=== PATIENT | female | born 1970 | race Caucasian/White ===

== ENCOUNTER 2022-02-27 11:41 | Outpatient (CLI) | payer MEDICARE, SELFPAY ==
[2022-02-27 13:33] LABS: Basophils Absolute Auto 0.03 K/uL (0.00-0.30); Basophils Percent Auto 0.5 % (0.0-3.0); Eosinophils Absolute Auto 0.11 K/uL (0.00-0.50); Eosinophils Percent Auto 1.9 % (0.0-7.0); Hematocrit 42.3 % (33.0-51.0); Hemoglobin* 13.9 gm/dL (12.0-16.0); Lymphocytes Absolute Auto 1.74 K/uL (0.90-2.90); Lymphocytes Percent Auto 30.6 % (20-44); Mean Corpuscular HGB Conc 33 gm/dL (32-36); Mean Corpuscular Hemoglobin 30 pg (26-34); Mean Corpuscular Volume 90 fL (80-100); Monocytes Percent Auto 9.7 % (0.0-11.0); Neutrophils Absolute Auto 3.26 K/uL (1.7-7.0); Neutrophils Percent Auto 57.3 % (42.0-72.0); Platelet Count* 214 K/uL (140-440); RDW Coefficient of Variation % 12.4 % (11.5-15.5); Red Blood Count 4.69 m/uL (4.00-5.20); White Blood Count* 5.69 K/uL (4.50-11.00)
[2022-02-27 13:54] LABS: Slide Review Reflex No
[2022-02-27 14:00] LABS: Chloride* 104 mmol/L (96-114); Potassium* 4.5 mmol/L (3.6-5.1); Sodium* 137 mmol/L (135-149)
[2022-02-27 14:03] LABS: Blood Urea Nitrogen* 20 mg/dL (7-30); Carbon Dioxide* 28 mmol/L (20-32); Cholesterol* 270 mg/dL (90-199); Creatinine* 0.9 mg/dL (0.5-1.5); Estimated Glomerular Filt Rate 78 ml/min; Glucose* 101 mg/dL (60-115); Triglycerides* 146 mg/dL (40-149)
[2022-02-27 14:04] LABS: HDL Cholesterol* 48 mg/dL (>=50); LDL Cholesterol Calculated 193 mg/dL (<100)
[2022-02-27 14:17] LABS: Vitamin D 25 Hydroxy* 45 ng/mL (30-80)
== END 2022-02-27 11:42 | disposition home or self-care (01) ==
PROVIDERS: PCP Family Medicine; Visit Provider Family Medicine
DX: Z79.899 Other long term (current) drug therapy (principal); E55.9 Vitamin D deficiency, unspecified; I10 Essential (primary) hypertension; F41.9 Anxiety disorder, unspecified; K21.9 Gastro-esophageal reflux disease without esophagitis; G43.909 Migraine, unspecified, not intractable, without status migrainosus; F32.A Depression, unspecified
CPT/HCPCS: 80048; 80061; 82306; 85025

== ENCOUNTER 2022-03-21 10:55 | Outpatient (CLI) | payer MEDICARE, SELFPAY ==
[2022-03-21 14:47] LABS: SARS PCR* Negative SARS-CoV-2 (Negative)
== END 2022-03-21 10:56 | disposition home or self-care (01) ==
LOC: FBOREF 10:56
PROVIDERS: PCP Family Medicine; Visit Provider Family Medicine
DX: Z20.822 Contact with and (suspected) exposure to COVID-19 (principal); Z01.818 Encounter for other preprocedural examination
CPT/HCPCS: 87635

== ENCOUNTER 2022-03-22 07:23 | Outpatient (CLI) | payer MEDICARE, SELFPAY ==
--- NOTE | 2022-03-22 08:41 | W.ANESCHARGE ---
Anesthesia Charges Start Date/Time Anesthesia Start Date: 03/22/22 Anesthesia Start Time: 08:13 Stop Date/Time Anesthesia Stop Date: 03/22/22 Anesthesia Stop Time: 08:35 Summary Emergency: No
--- NOTE | 2022-03-22 09:15 | W.ANESCHARGE ---
Anesthesia Charges Start Date/Time Anesthesia Start Date: 03/22/22 Anesthesia Start Time: 08:13 Stop Date/Time Anesthesia Stop Date: 03/22/22 Anesthesia Stop Time: 08:35 Summary Emergency: No
== END 2022-03-22 07:24 | disposition home or self-care (01) ==
PROVIDERS: PCP Family Medicine; Visit Provider Surgery
DX: Z12.11 Encounter for screening for malignant neoplasm of colon (principal); Z83.71 Family history of colonic polyps
CPT/HCPCS: 00812; 45378

== ENCOUNTER 2022-08-15 12:30 | Outpatient (CLI) | payer MEDICARE, SELFPAY ==
[2022-08-15 13:48] LABS: Clue Cells <20% Clue Cells Seen (None Seen); Trichomonas No Trichomonas Seen (None Seen); Yeast No Yeast Seen (None Seen)
[2022-08-15 13:49] LABS: Albumin* 4.3 g/dL (3.3-5.0)
[2022-08-15 13:52] LABS: Bilirubin Direct* 0.1 mg/dL (0.0-0.5); Bilirubin Total* 0.6 mg/dL (0.1-1.5)
[2022-08-15 13:53] LABS: Alanine Aminotransferase* 60 U/L (4-35); Alkaline Phosphatase* 95 U/L (40-150); Total Protein* 6.9 g/dL (6.0-8.3)
[2022-08-15 14:08] LABS: Aspartate Amino Transferase* 30 U/L (12-35)
[2022-08-15 14:26] LABS: HIV 1/2/P24 Combo Screen* Negative (Negative)
[2022-08-15 15:15] LABS: Chlamydia DNA Amplified* NOT DETECTED (No Detected); GC DNA Amplified* NOT DETECTED (No Detected)
[2022-08-16 19:14] LABS: Hep A Ab, IgM Negative (Negative); Hep B Core Ab, IgM Negative (Negative); Hep B Surface Antigen Negative (Negative); Hep C Ab by CIA Index 0.04 IV; Hep C Ab by CIA Interp Negative (Negative)
== END 2022-08-15 12:31 | disposition home or self-care (01) ==
PROVIDERS: PCP Family Medicine; Visit Provider Family Medicine
DX: I10 Essential (primary) hypertension (principal); N89.8 Other specified noninflammatory disorders of vagina; R10.9 Unspecified abdominal pain; J32.9 Chronic sinusitis, unspecified; Z11.3 Encounter for screening for infections with a predominantly sexual mode of transmission
CPT/HCPCS: 80074; 80076; 84443; 86703; 87210; 87491; 87591

== ENCOUNTER 2022-09-02 12:25 | Emergency (ER) | payer MEDICARE, SELFPAY ==
[2022-09-02 12:31] VITALS: BP 133/92; PULSE 82; RESP 18; TEMP 35.9; O2SAT 97; BMI 22.8
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
--- NOTE | 2022-09-02 12:57 | CRLHL7_ITS ---
For Patients: As a result of the Cures Act, medical imaging exams and procedure reports are released immediately into your electronic medical record. You may view this report before your referring provider. If you have questions, please contact your health care provider. INDICATION: Left sided chest pain TECHNIQUE: Chest radiograph 1 view COMPARISON: None FINDINGS: Mediastinum: The mediastinum is normal in appearance. The heart silhouette is normal in size and morphology. Lung: Both lungs are unremarkable in appearance. No sign of pleural effusion seen. No pneumothorax is identified. Bone and Soft tissue: Unremarkable for age. IMPRESSION: 1. No acute cardiopulmonary disease is seen. Dictated by: Carson Sparks MD @ 09/02/2022 13:23:59 (Electronically Signed)
[2022-09-02 13:33] VITALS: PULSE 66; O2SAT 100
[2022-09-02 13:39] LABS: Basophils Absolute Auto 0.01 K/uL (0.00-0.30); Basophils Percent Auto 0.2 % (0.0-3.0); Eosinophils Absolute Auto 0.09 K/uL (0.00-0.50); Eosinophils Percent Auto 1.5 % (0.0-7.0); Hemoglobin* 14.8 gm/dL (12.0-16.0); Lymphocytes Absolute Auto 1.38 K/uL (0.90-2.90); Lymphocytes Percent Auto 23.6 % (20-44); Mean Corpuscular HGB Conc 33 gm/dL (32-36); Mean Corpuscular Hemoglobin 30 pg (26-34); Mean Corpuscular Volume 91 fL (80-100); Monocytes Percent Auto 10.9 % (0.0-11.0); Neutrophils Absolute Auto 3.73 K/uL (1.7-7.0); Neutrophils Percent Auto 63.8 % (42.0-72.0); Platelet Count* 187 K/uL (140-440); RDW Coefficient of Variation % 13.1 % (11.5-15.5); Red Blood Count 4.95 m/uL (4.00-5.20); White Blood Count* 5.85 K/uL (4.50-11.00)
[2022-09-02 13:41] LABS: Slide Review Reflex Yes
[2022-09-02] MEDS: 0.9 % SODIUM CHLORIDE 1000 ml 1,000 ML IV (13:44)
[2022-09-02] MEDS: ONDANSETRON 2 MG/ML inj 4 MG IVP (13:44)
[2022-09-02 13:45] VITALS: PULSE 74; O2SAT 96
[2022-09-02 13:59] LABS: Albumin* 4.3 g/dL (3.3-5.0); Chloride* 103 mmol/L (96-114); Sodium* 137 mmol/L (135-149)
[2022-09-02 14:01] LABS: Bilirubin Total* 0.7 mg/dL (0.1-1.5); Creatinine* 0.9 mg/dL (0.5-1.5); Estimated Glomerular Filt Rate 77 ml/min
[2022-09-02 14:02] LABS: Alanine Aminotransferase* 66 U/L (4-35); Alkaline Phosphatase* 75 U/L (40-150); Aspartate Amino Transferase* 45 U/L (12-35); Blood Urea Nitrogen* 16 mg/dL (7-30); Calcium* 9.3 mg/dL (8.4-10.6); Carbon Dioxide* 26 mmol/L (20-32); Glucose* 100 mg/dL (60-115); Lipase* 95 U/L (23-300); Total Protein* 7.4 g/dL (6.0-8.3)
[2022-09-02 14:03] LABS: Magnesium* 1.8 mg/dL (1.5-2.6)
[2022-09-02 14:05] LABS: C Reactive Protein* 2.5 mg/dL (0.5-1.0)
[2022-09-02 14:21] LABS: PCR FLU A Negative PCR FLU A (Negative); PCR FLU B Negative PCR FLU B (Negative); PCR RSV Negative PCR RSV (Negative)
[2022-09-02 14:23] LABS: SARS PCR* Negative SARS-CoV-2 (Negative)
[2022-09-02 14:35] LABS: Slide Review Acceptable Review (Acceptable)
[2022-09-02 14:57] LABS: Appearance Urine Clear (Clear); Bilirubin Urine Negative (Negative); Blood Urine Negative (Negative); Color Urine Yellow (Yellow); Glucose Urine Negative (Negative); Ketones Urine Negative (Negative); Leukocyte Esterase Urine Negative (Negative); Nitrite Urine Negative (Negative); Protein Urine Negative (Negative); Urobilinogen Urine 0.2 (0.2-1.0)
[2022-09-02 15:06] LABS: RBC Urine 0-2 (0-2); WBC Urine 0-2 (0-5)
[2022-09-02 17:40] LABS: C.Difficile Negative (Negative); CDIFFEPI 027 PRESUMPTIVE NEGATIVE (Negative)
[2022-09-06 19:13] LABS: Ova and Parasite, Fecal Negative (Negative)
== END 2022-09-02 16:46 | disposition home or self-care (01) ==
PROVIDERS: Emergency Provider Family Medicine; PCP Family Medicine
DX: R07.9 Chest pain, unspecified (principal); R19.7 Diarrhea, unspecified; M54.14 Radiculopathy, thoracic region
CPT/HCPCS: 36415; 71045; 80053; 81001; 83690; 83735; 84484; 85025; 86140; 87045; 87046; 87177; 87209; 87427; 87493; 87502; 87634; 87635; 93005; 96374; 99284; J2405; J7030

== ENCOUNTER 2022-10-18 11:20 | Outpatient (CLI) | payer MEDICARE, SELFPAY ==
--- NOTE | 2022-10-18 11:30 | CRLHL7_ITS ---
For Patients: As a result of the Cures Act, medical imaging exams and procedure reports are released immediately into your electronic medical record. You may view this report before your referring provider. If you have questions, please contact your health care provider. BILATERAL SCREENING MAMMOGRAM WITH COMPUTER-AIDED DETECTION AND TOMOSYNTHESIS TECHNIQUE: CC and MLO views were obtained. These mammographic images have been obtained using full-field digital technique. These mammographic images were interpreted with the benefit of computer-aided detection. Breast tomosynthesis was used in this interpretation. COMPARISON FILM: 03/31/20, 02/12/19, 05/15/17. FINDINGS: There are scattered areas of fibroglandular density. IMPRESSION: There is no radiographic evidence for malignancy. ASSESSMENT: BI-RADS Category 1: Negative RECOMMENDATION: Routine screening mammogram in 1 year. A lay language report of this examination will be provided to the patient. SABINO RODAS M.D. Diagnostic Radiologist [email or web address] Transcribed: 10/19/2022, 1:[address]/Dictated by: Sabino Rodas MD @ 10/19/2022 8:25:00 AM (Electronically Signed)
== END 2022-10-18 11:21 | disposition home or self-care (01) ==
LOC: MAMMO 11:21
PROVIDERS: PCP Family Medicine; Visit Provider Family Medicine
DX: Z12.31 Encounter for screening mammogram for malignant neoplasm of breast (principal)
CPT/HCPCS: 77063; 77067

== ENCOUNTER 2023-08-20 12:35 | Emergency (ER) | payer MEDICARE, SELFPAY ==
[2023-08-20 13:20] VITALS: BP 145/103; PULSE 66; RESP 18; TEMP 36.4; O2SAT 98; BMI 22.0
--- NOTE | 2023-08-20 13:32 | CRLHL7_ITS ---
For Patients: As a result of the Century Cures Act, medical imaging exams and procedure reports are released immediately into your electronic medical record. You may view this report before your referring provider. If you have questions, please contact your health care provider. INDICATION: Right-sided flank pain. TECHNIQUE: CT abdomen and pelvis acquired with 100 cc Omnipaque 350 IV contrast. COMPARISON: None. FINDINGS: Lower chest: Scattered atelectasis. Liver: Unremarkable. Normal in size and attenuation. No suspicious masses. Gallbladder and bile ducts: Cholecystectomy. Pancreas: Unremarkable. No mass or inflammation. Spleen: Unremarkable. Normal in size. No masses. Adrenal glands: Unremarkable. No nodules. Kidneys: Moderate right-sided hydroureteronephrosis secondary to 6 millimeter obstructing UPJ/proximal ureteral stone. GI tract: Unremarkable. Normal in caliber. No sign of mass or inflammation. Appendectomy. Vasculature: Abdominal aorta is normal in caliber. Mesenteric arteries are patent. Lymph nodes: No lymphadenopathy. Peritoneum/Abdominal Wall: Unremarkable. No sign of mass or infiltration. No free air or significant free fluid. Pelvis: Unremarkable. Bones: Right hip arthroplasty without streak artifact IMPRESSION: Moderate right-sided hydronephrosis secondary to 6 millimeter obstructing UPJ/proximal ureteral stone. Please note that all CT scans at this facility use dose modulation, iterative reconstruction, and/or weight-based dosing when appropriate to reduce radiation dose to as low as reasonably achievable. Dictated by Kota Clayton MD @ 08/20/2023 2:34:43 PM (Electronically Signed)
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
[2023-08-20 13:53] LABS: Appearance Urine Slightly Cloudy (Clear); Bilirubin Urine Negative (Negative); Blood Urine 3+ (Negative); Color Urine Dark yellow (Yellow); Glucose Urine Negative (Negative); Ketones Urine Negative (Negative); Leukocyte Esterase Urine Negative (Negative); Nitrite Urine Negative (Negative); Protein Urine 1+ (Negative); Specific Gravity Urine 1.025 (1.000-1.030); Urobilinogen Urine 0.2 (0.2-1.0)
[2023-08-20] MEDS: KETOROLAC 15 MG/ML inj IVP (14:10)
[2023-08-20] MEDS: LACTATED RINGERS 1000 ML 1,000 ML IV (14:11)
[2023-08-20] MEDS: ONDANSETRON 2 MG/ML inj 4 MG IVP (14:12)
[2023-08-20 14:24] LABS: Bacteria Urine Few; RBC Urine 50-100 (0-2); Squamous Epithelial Cell Urine Few (None-Few)
[2023-08-20 14:30] VITALS: BP 148/74; PULSE 77; O2SAT 98
[2023-08-20 14:59] VITALS: PULSE 77; O2SAT 98
[2023-08-20 15:06] LABS: PCR FLU A Negative PCR FLU A (Negative); PCR FLU B Negative PCR FLU B (Negative); PCR RSV Negative PCR RSV (Negative); SARS PCR* Negative SARS-CoV-2 (Negative)
[2023-08-20 15:33] LABS: Basophils Absolute Auto 0.04 K/uL (0.00-0.30); Basophils Percent Auto 0.4 % (0.0-3.0); Eosinophils Absolute Auto 0.13 K/uL (0.00-0.50); Eosinophils Percent Auto 1.3 % (0.0-7.0); Hematocrit 39.2 % (33.0-51.0); Hemoglobin* 13.1 gm/dL (12.0-16.0); Immature Granulocytes Abs Auto 0.07 K/uL (0.00-0.30); Immature Granulocytes Pct Auto 0.7 %; Lymphocytes Absolute Auto 2.19 K/uL (0.90-2.90); Lymphocytes Percent Auto 21.2 % (20-44); Mean Corpuscular HGB Conc 33 gm/dL (32-36); Mean Corpuscular Hemoglobin 30 pg (26-34); Mean Corpuscular Volume 91 fL (80-100); Neutrophils Absolute Auto 6.97 K/uL (1.7-7.0); Neutrophils Percent Auto 67.4 % (42.0-72.0); Platelet Count* 188 K/uL (140-440); RDW Coefficient of Variation % 12.8 % (11.5-15.5); Red Blood Count 4.33 m/uL (4.00-5.20); White Blood Count* 10.33 K/uL (4.50-11.00)
[2023-08-20 15:39] LABS: Slide Review Reflex No
[2023-08-20 15:48] LABS: Albumin* 3.9 g/dL (3.3-5.0); Chloride* 105 mmol/L (96-114); Sodium* 138 mmol/L (135-149)
[2023-08-20 15:49] LABS: Potassium* 4.1 mmol/L (3.6-5.1)
[2023-08-20 15:51] LABS: Alanine Aminotransferase* 19 U/L (4-35); Alkaline Phosphatase* 79 U/L (40-150); Anion Gap 6 mEq/L (7-15); Aspartate Amino Transferase* 22 U/L (12-35); Bilirubin Total* 0.6 mg/dL (0.1-1.5); Blood Urea Nitrogen* 16 mg/dL (7-30); Calcium* 9.1 mg/dL (8.4-10.6); Carbon Dioxide* 27 mmol/L (20-32); Creatinine* 0.8 mg/dL (0.5-1.5); Est. Creatinine Clearance* 82.98; Estimated Glomerular Filt Rate 89 ml/min; Glucose* 95 mg/dL (60-115); Lipase* 101 U/L (23-300); Total Protein* 6.6 g/dL (6.0-8.3)
== END 2023-08-20 16:59 | disposition home or self-care (01) ==
PROVIDERS: Emergency Provider Student in an Organized Health Care Education/Training Program; PCP Family Medicine
DX: N20.0 Calculus of kidney (principal)
CPT/HCPCS: 36415; 74177; 80053; 81001; 83690; 85025; 87045; 87046; 87086; 87427; 87631; 96374; 96375; 99283; 99284; 99285; J1885; J2405; J7120; Q9967

== ENCOUNTER 2023-08-21 19:59 | Emergency (ER) | payer MEDICARE, SELFPAY ==
[2023-08-21 20:06] VITALS: BP 150/75; PULSE 78; RESP 20; TEMP 35.8; O2SAT 98; BMI 23.5
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
[2023-08-21] MEDS: KETOROLAC 30 MG/ML inj IVP (20:57)
[2023-08-21] MEDS: 0.9 % SODIUM CHLORIDE 500 ML 500 ML IV (20:57)
[2023-08-21] MEDS: ONDANSETRON 2 MG/ML inj 4 MG IVP (20:57)
[2023-08-21 21:17] LABS: Basophils Percent Auto 0.2 % (0.0-3.0); Eosinophils Percent Auto 1.1 % (0.0-7.0); Hematocrit 37.6 % (33.0-51.0); Hemoglobin* 12.6 gm/dL (12.0-16.0); Immature Granulocytes Pct Auto 0.1 %; Mean Corpuscular HGB Conc 34 gm/dL (32-36); Mean Corpuscular Hemoglobin 30 pg (26-34); Mean Corpuscular Volume 90 fL (80-100); Monocytes Percent Auto 8.2 % (0.0-11.0); Neutrophils Percent Auto 74.4 % (42.0-72.0); Platelet Count* 191 K/uL (140-440); RDW Coefficient of Variation % 12.7 % (11.5-15.5); Red Blood Count 4.16 m/uL (4.00-5.20); White Blood Count* 12.37 K/uL (4.50-11.00)
[2023-08-21 21:19] LABS: Slide Review Reflex No
[2023-08-21 21:29] LABS: Chloride* 106 mmol/L (96-114); Sodium* 140 mmol/L (135-149)
[2023-08-21 21:30] VITALS: BP 134/83; PULSE 78; RESP 18; O2SAT 97
[2023-08-21 21:30] LABS: Potassium* 3.3 mmol/L (3.6-5.1)
[2023-08-21 21:32] LABS: Creatinine* 0.9 mg/dL (0.5-1.5); Est. Creatinine Clearance* 71.11; Estimated Glomerular Filt Rate 77 ml/min
[2023-08-21 21:33] LABS: Anion Gap 9 mEq/L (7-15); Blood Urea Nitrogen* 14 mg/dL (7-30); Carbon Dioxide* 25 mmol/L (20-32); Glucose* 109 mg/dL (60-115)
[2023-08-21 21:36] LABS: C Reactive Protein* 0.9 mg/dL (0.5-1.0)
[2023-08-21 22:00] VITALS: BP 134/77; PULSE 72; RESP 18; O2SAT 98
[2023-08-21] MEDS: lidocaine HCL 2 % JELLY (TOP) STERILE 6 ML UR (22:15)
[2023-08-21 22:30] VITALS: BP 141/73; PULSE 72; RESP 18; O2SAT 97
== END 2023-08-21 23:14 | disposition home or self-care (01) ==
PROVIDERS: Emergency Provider Family Medicine; PCP Family Medicine
DX: N20.0 Calculus of kidney (principal)
CPT/HCPCS: 51701; 36415; 51798; 80048; 85025; 86140; 96361; 96374; 96375; 99284; J1885; J2405; J7030

== ENCOUNTER 2024-05-05 07:08 | Outpatient (CLI) | payer MEDICARE, SELFPAY ==
--- NOTE | 2024-05-05 19:20 | CRLHL7_ITS ---
For Patients: As a result of the Century Cures Act, medical imaging exams and procedure reports are released immediately into your electronic medical record. You may view this report before your referring provider. If you have questions, please contact your health care provider. BILATERAL SCREENING MAMMOGRAM WITH COMPUTER-AIDED DETECTION AND TOMOSYNTHESIS TECHNIQUE: CC and MLO views were obtained. These mammographic images have been obtained using full-field digital technique. These mammographic images were interpreted with the benefit of computer-aided detection. Breast Tomosynthesis was used in this interpretation. COMPARISON FILM: 10/18/22, 03/31/20, 02/12/19. FINDINGS: The breasts are heterogeneously dense, which may obscure small masses IMPRESSION: There is no radiographic evidence for malignancy. ASSESSMENT: BI-RADS Category 1: Negative RECOMMENDATION: Routine screening mammogram in 1 year. A lay language report of this examination will be provided to the patient. Sabino Young M.D. Diagnostic Radiologist [email or web address] Transcribed: 1:34 p.[email or web address] constantino/Dictated by: Sabino Young MD @ 05/05/2024 10:45:00 AM (Electronically Signed)
== END 2024-05-05 07:09 | disposition home or self-care (01) ==
PROVIDERS: PCP Family Medicine; Visit Provider Family Medicine
DX: Z12.31 Encounter for screening mammogram for malignant neoplasm of breast (principal); R92.333 Mammographic heterogeneous density, bilateral breasts
CPT/HCPCS: 77063; 77067

== ENCOUNTER 2024-05-20 14:03 | Emergency (ER) | payer MEDICARE, SELFPAY ==
[2024-05-20 14:06] VITALS: BP 187/110; PULSE 73; RESP 16; TEMP 36.4; O2SAT 97; BMI 22.9
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
--- NOTE | 2024-05-20 14:40 | CRLHL7_ITS ---
For Patients: As a result of the Century Cures Act, medical imaging exams and procedure reports are released immediately into your electronic medical record. You may view this report before your referring provider. If you have questions, please contact your health care provider. INDICATION: Chest pain. TECHNIQUE: Chest 1 views. COMPARISON: None. FINDINGS: Cardiovascular and mediastinum: Heart size and vasculature are normal in caliber and appearance. Lungs and pleural spaces: Lungs are clear. No sign of infiltrate or mass. No sign of pleural effusion. No pneumothorax. Bones and soft tissues: No significant findings. IMPRESSION: No acute or significant findings. Dictated by Kota Clayton MD @ 05/20/2024 3:00:04 PM (Electronically Signed)
[2024-05-20 15:04] LABS: Basophils Absolute Auto 0.05 K/uL (0.00-0.30); Basophils Percent Auto 0.7 % (0.0-3.0); Eosinophils Absolute Auto 0.11 K/uL (0.00-0.50); Eosinophils Percent Auto 1.5 % (0.0-7.0); Hematocrit 45.8 % (33.0-51.0); Hemoglobin* 15.2 gm/dL (12.0-16.0); Immature Granulocytes Abs Auto 0.03 K/uL (0.00-0.30); Immature Granulocytes Pct Auto 0.4 %; Lymphocytes Absolute Auto 2.53 K/uL (0.90-2.90); Lymphocytes Percent Auto 34.8 % (20-44); Mean Corpuscular HGB Conc 33 gm/dL (32-36); Mean Corpuscular Hemoglobin 30 pg (26-34); Mean Corpuscular Volume 90 fL (80-100); Monocytes Percent Auto 7.7 % (0.0-11.0); Neutrophils Absolute Auto 3.99 K/uL (1.7-7.0); Neutrophils Percent Auto 54.9 % (42.0-72.0); Platelet Count* 210 K/uL (140-440); RDW Coefficient of Variation % 12.8 % (11.5-15.5); Red Blood Count 5.12 m/uL (4.00-5.20); White Blood Count* 7.27 K/uL (4.50-11.00)
[2024-05-20 15:13] LABS: Slide Review Reflex No
[2024-05-20 16:14] VITALS: BP 154/83
[2024-05-20 16:21] LABS: Chloride* 101 mmol/L (96-114); Potassium* 3.5 mmol/L (3.6-5.1); Sodium* 135 mmol/L (135-149)
[2024-05-20 16:24] LABS: Creatinine* 0.8 mg/dL (0.5-1.5); Est. Creatinine Clearance* 79.09; Estimated Glomerular Filt Rate 88 ml/min
[2024-05-20 16:25] LABS: Anion Gap 6 mEq/L (7-15); Blood Urea Nitrogen* 16 mg/dL (7-30); Calcium* 9.5 mg/dL (8.4-10.6); Carbon Dioxide* 28 mmol/L (20-32); Glucose* 93 mg/dL (60-115)
[2024-05-20 16:28] LABS: C Reactive Protein* < 0.5 mg/dL (0.5-1.0); D Dimer Quantitative* < 0.27 ug/ml (0.00-0.50)
[2024-05-20 16:38] LABS: Troponin I* < 0.01 ng/mL (0.01-0.04)
[2024-05-20] MEDS: GI COCKTAIL (VISC LIDO/ANTACID) 30 ML PO (16:50)
== END 2024-05-20 17:24 | disposition home or self-care (01) ==
PROVIDERS: Emergency Provider Family Medicine; PCP Family Medicine
DX: R07.9 Chest pain, unspecified (principal); I01.0 Acute rheumatic pericarditis
CPT/HCPCS: 36415; 71045; 80048; 84484; 85025; 85379; 86140; 93005; 99284; A9270

== ENCOUNTER 2024-06-29 14:51 | Outpatient (CLI) | payer MEDICARE, SELFPAY | END 2024-06-29 14:52 | disposition home or self-care (01) | LOC: RAD 14:52 | PROVIDERS: PCP Family Medicine; Visit Provider Family Medicine | DX: R07.9 Chest pain, unspecified (principal); I34.0 Nonrheumatic mitral (valve) insufficiency | CPT/HCPCS: 93306 ==

== ENCOUNTER 2025-05-31 12:45 | Outpatient (CLI) | payer MEDICARE, SELFPAY ==
--- NOTE | 2025-06-09 14:45 | W.PM.SLEEP ---
Sleep Study Details Details Interpreting Provider: Baltazar Date of Sleep Study: 05/31/25 Sleep Study Details: STUDY TYPE:? Home unattended ? BMI:? 23.49 ORDERING PROVIDER:Sung Velazquez INDICATION:? Concern for sleep apnea ? SLEEP SUMMARY:? 596 minutes monitored RESPIRATORY SUMMARY:? AHI 7.2 per rule 1A, 3.4 per CMS guideline Low oxygen 82 15.4% of study oxygen less than 90% Snoring 100% PERIODIC LIMB MOVEMENTS OF SLEEP:? Not recorded CARDIAC:? Range 54-99, mean 69.4 beats per minute IMPRESSION:? Mild obstructive sleep apnea per rule 1A. Significant hypoxemia was also noted for 15% of the study RECOMMENDATION: Treatment options include CPAP, dental appliance and/or airway expansion surgery. Once effective therapy is established would recommend an overnight oximetry study.
--- NOTE | 2025-06-15 13:04 | W.PM.SLEEP ---
Sleep Study Details Details Interpreting Provider: Baltazar Date of Sleep Study: 05/31/25 Sleep Study Details: STUDY TYPE:? Home unattended ? BMI:? 23.49 ORDERING PROVIDER:? Marcus INDICATION:? Concern for sleep apnea ? SLEEP SUMMARY:? 596 minutes monitored RESPIRATORY SUMMARY:? AHI 7.2 rule 1A, 3.4 CMS guideline Low oxygen 82 15.4% of study oxygen less than 90% Snoring 100% PERIODIC LIMB MOVEMENTS OF SLEEP:? Not recorded CARDIAC:? Range 54-99, mean 69.4 beats per minute IMPRESSION:? Mild obstructive sleep apnea with significant desaturations RECOMMENDATION: Treatment options include CPAP dental appliance and/or airway expansion surgery. Further cardiopulmonary evaluation may be indicated because of the amount of desaturation for 15% of the study.
== END 2025-05-31 12:46 | disposition home or self-care (01) ==
LOC: SLEEP 12:46
PROVIDERS: PCP Family Medicine; Visit Provider Family Medicine
DX: G47.33 Obstructive sleep apnea (adult) (pediatric) (principal)
CPT/HCPCS: 95806

== ENCOUNTER 2025-06-21 11:52 | Outpatient (CLI) | payer MEDICARE, SELFPAY | END 2025-06-21 11:53 | disposition home or self-care (01) | LOC: NFLDREF 06-26 17:51 | PROVIDERS: PCP Family Medicine; Referring Provider Family Medicine; Visit Provider Otolaryngology | DX: D64.9 Anemia, unspecified (principal) | CPT/HCPCS: 82728; 85027 ==

== ENCOUNTER 2025-07-01 12:37 | Outpatient (CLI) | payer MEDICARE, SELFPAY ==
--- NOTE | 2025-07-01 13:00 | CRLHL7_ITS ---
For Patients: As a result of the Century Cures Act, medical imaging exams and procedure reports are released immediately into your electronic medical record. You may view this report before your referring provider. If you have questions, please contact your health care provider. Indication: DEVIATED SEPTUM, CHRONIC SINUSITIS Technique: Performed without IV contrast Comparison: 09/27/2021 Findings: Frontal sinuses: Clear. Ethmoid sinuses: Clear. Maxillary sinuses: Tiny mucous retention cyst noted on the right. Clear left maxillary sinus. The maxillary sinus drainage pathways are patent on both sides. Sphenoid sinuses: Clear, including both sphenoethmoidal recesses. Nasal Cavity: Leftward deviation of the nasal septum again noted with a left-sided spur. Large mary bullosa right middle turbinate unchanged measuring 1.6 cm. No TMJ abnormalities identified. The visualized portions of the orbits, intracranial contents and upper soft tissue neck are grossly negative. Impression: 1. Leftward curvature of the nasal septum with left-sided nasal septal spur. 2. Large right middle turbinate mary bullosa. 3. Clear sinuses with tiny mucous retention cyst incidentally noted in the right maxillary sinus. Please note that all CT scans at this facility use dose modulation, iterative reconstruction, and/or weight-based dosing when appropriate to reduce radiation dose to as low as reasonably achievable. Dictated by Sabino Young MD @ 07/01/2025 3:45:53 PM (Electronically Signed)
== END 2025-07-01 12:38 | disposition home or self-care (01) ==
LOC: CT 12:38
PROVIDERS: PCP Family Medicine; Visit Provider Otolaryngology
DX: J32.9 Chronic sinusitis, unspecified (principal); J34.2 Deviated nasal septum; J34.3 Hypertrophy of nasal turbinates; J32.0 Chronic maxillary sinusitis
CPT/HCPCS: 70486